=== PATIENT | female | born 1980 | race Caucasian/White ===

== ENCOUNTER 2019-11-08 14:03 | Emergency (ER) | payer OTHER, SELFPAY ==
[2019-11-08 14:05] VITALS: BP 141/86; PULSE 99; RESP 20; TEMP 36.9; O2SAT 99; BMI 24.0
--- NOTE | 2019-11-08 14:15 | HMH.COUGH ---
[facility] HPI - History of Present Illness Complaint:: LG fever, body aches HPI:: 4 days sxs. Mainly with some fever and body aches. She is not really had cough or congestion. There has been some slight throat discomfort. No one else in the family is sick and there is been no significant COVID 19 exposure. Onset (ago): day(s) Severity: mild Treatments prior to arrival: none Home Medications: Home Medications Medication Instructions Recorded Confirmed Type Cefdinir [Omnicef 300mg Capsule] 300 mg PO BID #20 cap 11/08/19 Rx Allergies/Adverse Reactions: Allergies Allergy/AdvReac Type Severity Reaction Status Date / Time No Known Allergies Allergy Verified 11/08/19 14:06 [facility] Triage - Symptoms Fever History: Yes Chills: Yes Myalgia: Yes Nasal Drainage: Yes Sore Throat: Yes Productive Cough: No Non-productive Cough: Yes Ear or Sinus Pain: No Joint Pain: Yes Chest Pain: Yes Rash: No Shortness of Breath: Yes Nausea or Vomitting: Yes Headache: Yes Abdominal Pain: No Diarrhea: Yes - Exposure History Foreign Travel: No Direct Contact with COVID-19 Patient: No - Risk Factors Greater than 60 Years Old: No COPD: No Diabetes: No Heart Disease: No Home Oxygen Use: No Chronic Renal Disease: No Chronic Liver Disease: No Neurologic/Neurodevelopmental/intellectual disability: No Other Chronic Diseases: No If Female, currently : No Current Smoker: No Former Smoker: No [facility] History I have reviewed the patient's past medical history: Yes Other Medical History: Reports: Anemia (During ) Other Surgeries: Yes: Other (Surgery for foot fracture.) Fractures: Yes - Social History Smoking Status: Former smoker Tobacco Type: cigarettes Alcohol Intake Frequency:: 0-2 drinks per day Family Hx:: Hypertension (Mother and father), Kidney Disease (Father) - Constitutional Constitutional: Reports body ache, Denies difficulty sleeping - Eyes Eyes: Denies blurry vision - ENT Ears, Nose, Mouth, and Throat: Reports nasal congestion - Cardiovascular Cardiovascular: Reports chest pain (Mild brief) - Respiratory Respiratory: No cough - Gastrointestinal Gastrointestingal: Reports: diarrhea (Patient will) - Integumentary/Breasts Skin/Breast: Denies rash [facility] Exam - General General appearance: alert, in no apparent distress - Head Head exam: normocephalic - Eye Eye exam: Absent: jaundice - ENT ENT exam: Present: normal oropharynx (Mild erythema), TM's normal bilaterally - Neck Neck exam: Absent: lymphadenopathy - Respiratory Respiratory exam: Present: normal lung sounds bilaterally. Absent: respiratory distress - Cardiovascular Cardiovascular exam: Present: regular rate - Abdominal Exam Abdominal exam: Present: soft. Absent: tenderness - Extremities Exam Extremities exam: Present: normal inspection, full ROM, normal capillary refill. Absent: pedal edema, calf tenderness - Neurological Exam Neurological exam: Present: alert, oriented X3 [facility] MDM Vital Signs: 11/08/19 14:05 Temperature 98.4 F Temperature Source Oral Pulse Rate [Brachial] 99 H Respiratory Rate 20 Blood Pressure [Right Arm] 141/86 H Blood Pressure Mean [Right Arm] 104 Blood Pressure Source [Right Arm] Automatic Cuff Blood Pressure Position [Right Arm] Sitting 02 Sat by Pulse Oximetry 99 Oxygen Delivery Method Room Air - Lab Data Lab Results 11/08/19 14:23: WBC 10.6, RBC 4.35, Hgb 12.9, Hct 39.3, MCV 90.5, MCH 29.7, MCHC 32.8, RDW 12.9, Plt Count 240, MPV 9.2, Neut % (Auto) 74.7, Lymph % (Auto) 20.0, [place] % (Auto) 3.9, Eos % (Auto) 0.8, Baso % (Auto) 0.6, Neut # (Auto) 7.9 H, Lymph # (Auto) 2.1, [place] # (Auto) 0.4, Eos # (Auto) 0.1, Baso # (Auto) 0.1 11/08/19 14:23: Influenza Type A Ag Negative, Influenza Type B Ag Negative 11/08/19 15:11: Group A Strep Rapid Negative 11/08/19 15:12: Urine Color Yellow, Urine Appearance Clear, Urine pH 6.0, Ur S
[2019-11-08 14:37] LABS: Eosinophils % 0.8 % (0.1-12.0); Hematocrit 39.3 % (37.0-47.0); Hemoglobin 12.9 g/dL (12.2-16.2); Mean Corpuscular HGB Conc 32.8 g/dL (31.8-35.4); Mean Corpuscular Hemoglobin 29.7 pg (27.0-31.2); Mean Corpuscular Volume 90.5 fl (81-99); Mean Platelet Volume 9.2 fl (7.4-10.4); Monocytes % 3.9 % (1.7-9.3); Neutrophils % 74.7 % (37.0-80.0); Platelet Count 240 K/mm3 (142-424); Red Blood Count 4.35 M/mm3 (4.20-5.40); Red Cell Distribution Width 12.9 % (11.5-17.5); White Blood Count 10.6 K/mm3 (4.8-10.8)
[2019-11-08 14:38] LABS: Basophils # 0.1 K/mm3 (0-0.2); Basophils % 0.6 % (0.1-2.0); Eosinophils # 0.1 K/mm3 (0.0-0.4); Lymphocytes # 2.1 K/mm3 (0.7-4.5); Monocytes # 0.4 K/mm3 (0.1-1.0); Neutrophils # 7.9 K/mm3 (1.8-7.8)
[2019-11-08 15:18] LABS: Appearance,Urine CLEAR (Clear); Bilirubin,Urine Negative (Negative); Blood, Urine TRACE-I (Negative); Color,Urine YELLOW (Yellow); Glucose,Urine (UA) Negative (Negative); Ketones,Urine Negative (Negative); Leukocyte Esterase,Urine Negative (Negative); Nitrate,Urine Negative (Negative); Protein,Urine Negative (Negative); Urobilinogen,Urine 0.2 EU/dl (0.2)
[2019-11-08 15:19] LABS: Microscopic, Urine URINE MICROSCOPIC (MICROSCOPIC)
[2019-11-08 15:22] LABS: Strep Scrn Group A (Rapid) Negative (Negative)
[2019-11-08 15:25] LABS: RBC,Urine Occasional #/hpf (0-3); WBC,Urine Occasional #/hpf (0-3)
[2019-11-08 15:44] VITALS: BP 141/86; PULSE 111; RESP 18; TEMP 36.9; O2SAT 99
== END 2019-11-08 15:45 | disposition home or self-care (01) ==
PROVIDERS: Emergency Provider Family Medicine
DX: R50.9 Fever, unspecified (principal); D72.825 Bandemia
CPT/HCPCS: 36415; 81001; 85025; 87275; 87276; 87430; 99201; 99213

== ENCOUNTER → 2021-07-21 11:19 | Outpatient (CLI) | payer OTHER, SELFPAY ==
--- NOTE | 2021-07-21 11:48 | XR_ITS ---
PROCEDURE: XR SHOULDER LT MIN 2V CLINICAL INDICATION: pain w/o trauma COMPARISON: No exams were available for comparison FINDINGS: No fracture or dislocation. No lytic or blastic change. There is normal mineralization. The joint spaces are well-preserved. No significant degenerative/arthritic changes. No erosive changes evident. Other findings:None. IMPRESSION: No acute findings. Dictated by: Hernando Strong MD 07/21/2021 17:11 Hernando Strong MD in [place] 07/21/2021 17:11
[2021-07-21 12:24] LABS: Basophils % 0.5 % (0.1-2.0); Eosinophils # 0.2 K/mm3 (0.0-0.4); Eosinophils % 2.9 % (0.1-12.0); Hematocrit 40.7 % (37.0-47.0); Hemoglobin 13.5 g/dL (12.2-16.2); Lymphocytes # 2.3 K/mm3 (0.7-4.5); Lymphocytes % 35.9 % (10-50); Mean Corpuscular HGB Conc 33.3 g/dL (31.8-35.4); Mean Corpuscular Hemoglobin 29.8 pg (27.0-31.2); Mean Corpuscular Volume 89.3 fl (81-99); Mean Platelet Volume 8.5 fl (7.4-10.4); Monocytes # 0.2 K/mm3 (0.1-1.0); Monocytes % 3.8 % (1.7-9.3); Neutrophils # 3.6 K/mm3 (1.8-7.8); Neutrophils % 56.9 % (37.0-80.0); Platelet Count 291 K/mm3 (142-424); Red Blood Count 4.55 M/mm3 (4.20-5.40); Red Cell Distribution Width 12.6 % (11.5-17.5); White Blood Count 6.3 K/mm3 (4.8-10.8)
[2021-07-21 12:53] LABS: Alanine Aminotransferase 20 U/L (12-78); Albumin Level 4.9 g/dl (3.5-5.0); Albumin/Globulin Ratio 1.6 (1.1-1.8); Alkaline Phosphatase 64 U/L (38-126); Anion Gap 14.1 mEq/L (5-15); Aspartate Amino Transferase 25 U/L (14-36); Bilirubin,Total 0.3 mg/dl (0.2-1.3); Blood Urea Nitrogen 11 mg/dl (7-17); Calcium 9.8 mg/dl (8.4-10.2); Carbon Dioxide 27 mmol/L (22.0-30.0); Chloride 103 mmol/L (98-107); Cholesterol 238 mg/dl (140-200); Estimated Glomerular Filt Rate 94 ml/min (>60); GFR (African American) 113 ML/MIN (>60); Globulin 3.1 g/dL (1.3-3.2); Glucose 77 mg/dl (74-100); HDL Cholesterol 60 mg/dl (40-60); Potassium 4.1 mmoL/L (3.5-5.1); Sodium 140 mmol/L (136-145); Triglycerides 154 mg/dl (30-150); VLDL Cholesterol 31 mg/dL (0-40)
[2021-07-21 13:23] LABS: Thyroid Stimulating Hormone 3.07 uIU/mL (0.465-4.68)
[2021-07-22 09:13] LABS: Estradiol 47.3 pg/mL (.); FSH 7.3 mIU/mL (.); Testosterone,Total 8 ng/dL (8-60)
== END ==
PROVIDERS: Visit Provider Family Medicine
DX: D72.825 Bandemia (principal); M25.512 Pain in left shoulder; N95.1 Menopausal and female climacteric states
CPT/HCPCS: 36415; 73030; 80053; 80061; 82670; 83001; 84403; 84443; 85025

== ENCOUNTER → 2021-09-11 08:06 | Outpatient (CLI) | payer OTHER, SELFPAY ==
--- NOTE | 2021-09-11 08:12 | MR_ITS ---
FINAL REPORT CLINICAL HISTORY: shoulder pain. shoulder pain xyrs with pain radiating up neck. unable to lay on shoulder. prior x-ray 07-21-21 FINDINGS: Multiplanar MR imaging of the left shoulder was performed without contrast. The tendons of the rotator cuff are intact without evidence of rotator cuff tear. There is mild a.c. joint arthrosis. Mild edema seen in the distal clavicle and acromion. A small amount of fluid is seen in the subacromial/subdeltoid bursa. The glenoid labrum is intact. The long head of the biceps tendon is intact. No significant glenohumeral joint effusion is seen. There is no evidence of fracture or dislocation. The musculature is intact. There is no evidence of soft tissue mass. IMPRESSION: Mild a.c. joint arthrosis. Reviewed, Interpreted and Dictated by Turner Smith III, MD Transcribed by Nicole Vogel Authenticated by Turner Smith III, MD on 09/11/2021 11:04:30 AM [facility]
== END ==
PROVIDERS: PCP Family Medicine; Visit Provider Orthopaedic Surgery
DX: M25.512 Pain in left shoulder (principal)
CPT/HCPCS: 73221

== ENCOUNTER → 2022-09-16 21:23 | Outpatient (CLI) | payer OTHER, SELFPAY ==
[2022-09-16 20:13] LABS: Free T4 (Free Thyroxine) 1.12 ng/dl (0.78-2.19)
[2022-09-16 20:19] LABS: T4 (Thyroxine) 8.9 ug/dl (5.53-11.0)
[2022-09-16 20:33] LABS: Thyroid Stimulating Hormone 1.95 uIU/mL (0.465-4.68)
[2022-09-18 13:59] LABS: Triiodothyronine (T3) Free 3.4 pg/mL (2.0-4.4)
[2022-09-23 14:14] LABS: Testosterone,Free 1.6 pg/mL (0.0-4.2)
== END ==
PROVIDERS: PCP Family Medicine; Visit Provider Family Medicine
DX: E03.9 Hypothyroidism, unspecified (principal); E34.9 Endocrine disorder, unspecified
CPT/HCPCS: 84402; 84403; 84436; 84439; 84443; 84481

== ENCOUNTER → 2022-11-01 15:13 | Outpatient (CLI) | payer OTHER, SELFPAY ==
--- NOTE | 2022-11-01 15:14 | US_ITS ---
FINAL REPORT CLINICAL HISTORY: Enlarged thyroid FINDINGS: THYROID ULTRASOUND Sonographic images of the thyroid was obtained. The right lobe of the thyroid measures 1.9 x 1.7 cm. There is a dominant 1.1 x 0.8 cm TI-RADS category 3 nodule. The left lobe of the thyroid measures 4.5 x 1.9 x 1.7 cm. There is a 0.5 x 0.3 cm TI-RADS category 4 nodule. The isthmus measures 3 mm. There is a 0.8 x 0.7 cm TI-RADS category 3 nodule. IMPRESSION: Small nodules as described. No follow-up required. Reviewed, Interpreted and Dictated by Narciso Sheikh MD Transcribed by Viktoriya Shields Authenticated and [facility]
== END ==
PROVIDERS: PCP Family Medicine; Visit Provider Nurse Practitioner Family
DX: E01.0 Iodine-deficiency related diffuse (endemic) goiter (principal); Z80.8 Family history of malignant neoplasm of other organs or systems; Z83.49 Family history of other endocrine, nutritional and metabolic diseases
CPT/HCPCS: 76536

== ENCOUNTER → 2022-11-09 13:05 | Outpatient (CLI) | payer OTHER, SELFPAY | PROVIDERS: PCP Family Medicine; Visit Provider Nurse Practitioner Family | DX: G47.30 Sleep apnea, unspecified (principal); G47.00 Insomnia, unspecified; G47.19 Other hypersomnia; R06.83 Snoring; Z68.28 Body mass index [BMI] 28.0-28.9, adult | CPT/HCPCS: G0399 ==